=== PATIENT | male | born 1995 | race Asian ===

== ENCOUNTER 2019-05-31 15:45 | Emergency (ER) | payer BC ==
--- NOTE | 2019-05-31 17:30 | EDM.PDOC ---
<Bhumika Alaniz - Last Filed: 05/31/19 17:25> ED HPI GENERAL MEDICAL PROBLEM - General Chief Complaint: Abdominal Pain Stated Complaint: BLOOD IN STOOL Time Seen by Provider: 05/31/19 17:14 Source of Information: Reports: Patient History Limitations: Reports: No Limitations - History of Present Illness INITIAL COMMENTS - FREE TEXT/NARRATIVE: Patient is a pleasant 23-year-old male that presents to the ED today for complaints of blood in the stool and pain at rectum with bowel movements for the past four days. He reports that he gets more blood on the tissue paper when he wipes than he sees in the toilet bowl. For the first two days, he reports that the blood was a dark red color and for the past two days it has been a brighter red. He states his bowel movements are typically soft and he does not have to strain to evacuate stool. He reports he had a similar episode of blood in the stool in December of 2018, at which time he saw the school nurse and was told to increase his fluids and the issue resolved after five day. He denies having any abdominal pain, nausea, or diarrhea. Duration: Day(s): Treatments ADMITTING OFFICE ESCORT: Reports: Other (see below) Other Treatments ADMITTING OFFICE ESCORT: increased fluid intake - Related Data Allergies Allergy/AdvReac Type Severity Reaction Status Date / Time No Known Allergies Allergy Verified 05/31/19 16:01 Home Meds: Home Meds . [No Known Home Meds] 05/31/19 [History] Past Medical History HEENT History: Reports: Impaired Vision Gastrointestinal History: Reports: Other (See Below) Social & Family History - Tobacco Use Smoking Status *Q: Never Smoker Second Hand Smoke Exposure: No - Caffeine Use Caffeine Use: Reports: None - Recreational Drug Use Recreational Drug Use: No ED ROS GENERAL - Review of Systems Review Of Systems: See Below Constitutional: Reports: No Symptoms. Denies: Fever, Chills, Weakness, Decreased Appetite Respiratory: Reports: No Symptoms. Denies: Shortness of Breath, Wheezing, Cough Cardiovascular: Reports: No Symptoms. Denies: Chest Pain, Edema, Syncope GI/Abdominal: Reports: Bloody Stool, Hematochezia. Denies: Abdominal Pain, Constipation, Diarrhea, Decreased Appetite, Melena, Nausea, Vomiting Skin: Reports: No Symptoms. Denies: Rash, Erythema Neurological: Reports: No Symptoms. Denies: Dizziness, Syncope, Weakness Psychiatric: Reports: No Symptoms ED EXAM, GI/ABD - Physical Exam Exam: See Below Exam Limited By: No Limitations General Appearance: Alert, WD/WN, No Apparent Distress Respiratory/Chest: No Respiratory Distress, Lungs Clear, Normal Breath Sounds, Chest Non-Tender Cardiovascular: Normal Peripheral Pulses, Regular Rate, Rhythm, No Edema, No Murmur GI/Abdominal Exam: Normal Bowel Sounds, Soft, Non-Tender, No Organomegaly, No Distention, No Mass Back Exam: Normal Inspection, Full Range of Motion Extremities: Normal Inspection, Normal Range of Motion, Non-Tender, No Pedal Edema, Normal Capillary Refill Neurological: Alert, Oriented, Normal Cognition, No Motor/Sensory Deficits Psychiatric: Normal Affect, Normal Mood Skin Exam: Warm, Dry, Intact, No Rash Course - Vital Signs Last Recorded V/S: Last Vital Signs Temp 98.2 F 05/31/19 15:54 Pulse 81 05/31/19 15:54 Resp 18 05/31/19 15:54 BP 135/81 05/31/19 15:54 Pulse Ox 100 05/31/19 15:54 Departure - Departure Disposition: Home, Self-Care 01 Clinical Impression: Rectal hemorrhage - Discharge Information Referrals: PCP,None [Primary Care Provider] - Forms: ED Department Discharge Additional Instructions: High-fiber diet, drink plenty of water, stool softener such as Colace once or twice daily which is available OTC. Preparation H suppository which is also available OTC once every 8 hours until bleeding has completely stopped. Follow- up with [facility] if bleeding hasn't totally resolved within 5-7 days as expected or return to ED as needed. Sepsis Event Note - Evaluation Sepsis Screening Result: No Definite Risk - Focused Exam Date Exam was Performed: 05/31/19 Time Exam was Performed: 17:25 <Jose Guadalupe Chery - Last Filed: 06/02/19 11:22> Course - Re-Assessments/Exams Free Text/Narrative Re-Assessment/Exam: 06/02/19 11:20 Initial hx and exam was done by KIMBERLY Santillan student. I agree with her hx and exam as documented. I have also interviewed and evaluated patient. I did do a rectal exam and on my exam there was no blood, small amount of brown stool, trace heme positive, no mass or unusual tenderness or when the patient did white very small amount of blood. This is either a small internal hemorrhoid or small rectal fissure. No evidence for upper GI bleeding or colonic hemorrhage. Urge instructions as documented. Departure - Departure Time of Disposition: 18:21 Condition: Fair Sepsis Event Note - Focused Exam Date Exam was Performed: 06/02/19 Time Exam was Performed: 11:20
== END 2019-05-31 18:28 | disposition home or self-care (01) ==
LOC: JD.ED 15:45
DX: K62.5 Hemorrhage of anus and rectum (principal)
CPT/HCPCS: 99282; 99283

== ENCOUNTER 2020-10-21 21:32 | Emergency (ER) | payer BC ==
--- NOTE | 2020-10-21 23:10 | EDM.PDOC ---
<Jose Guadalupe Chery Esvin - Last Filed: 10/21/20 23:05> ED HPI GENERAL MEDICAL PROBLEM - General Chief Complaint: General Stated Complaint: WEAK TIRED ABDOMINAL PAIN Time Seen by Provider: 10/21/20 22:12 Source of Information: Reports: Patient, RN Notes Reviewed - History of Present Illness INITIAL COMMENTS - FREE TEXT/NARRATIVE: 24 yr old male comes in with multiple concerns. Mostly concerned about decreased appetite, low energy for the past 1 to 2 weeks. Has noticed some irritation end of his penis, better this evening and has had mild dysuria. Worried about possible STD or wondering what else might be going on. No recent cough, chest pain, dsypnea abd pain. No fever, chills, vomiting or diarrhea. Headache Pain Score (Numeric/FACES): 7 - Related Data Allergies Allergy/AdvReac Type Severity Reaction Status Date / Time No Known Allergies Allergy Verified 10/21/20 21:59 Home Meds: Home Meds . [No Known Home Meds] 05/31/19 [History] Past Medical History HEENT History: Reports: Impaired Vision Cardiovascular History: Reports: None Respiratory History: Reports: None Gastrointestinal History: Reports: Other (See Below) Genitourinary History: Reports: None Musculoskeletal History: Reports: None Neurological History: Reports: None Psychiatric History: Reports: None Endocrine/Metabolic History: Reports: None Hematologic History: Reports: None Immunologic History: Reports: None Oncologic (Cancer) History: Reports: None Dermatologic History: Reports: Other (See Below) Other Dermatologic History: cyst on tailbone - Infectious Disease History Infectious Disease History: Reports: None - Past Surgical History HEENT Surgical History: Reports: None Social & Family History - Family History Family Medical History: No Pertinent Family History - Tobacco Use Tobacco Use Status *Q: Never Tobacco User - Caffeine Use Caffeine Use: Reports: None - Recreational Drug Use Recreational Drug Use: No ED ROS GENERAL - Review of Systems Review Of Systems: See Below Constitutional: Denies: Fever, Chills HEENT: Reports: No Symptoms Respiratory: Denies: Shortness of Breath, Cough Cardiovascular: Denies: Chest Pain GI/Abdominal: Reports: Decreased Appetite. Denies: Abdominal Pain, Nausea Musculoskeletal: Reports: No Symptoms Skin: Reports: Rash (mild "inflamation" distal penis) Neurological: Reports: Dizziness (mild). Denies: Headache, Weakness ED EXAM, GENERAL - Physical Exam Exam: See Below General Appearance: Alert, No Apparent Distress Throat/Mouth: Normal Inspection Head: Atraumatic Neck: Supple Respiratory/Chest: No Respiratory Distress, Normal Breath Sounds Cardiovascular: Regular Rate, Rhythm GI/Abdominal: Soft, Non-Tender (Male) Exam: Other (no rash or other lesions visible at time of exam). No: Urethral Discharge Back Exam: No: CVA Tenderness (L), CVA Tenderness (R) Extremities: Normal Inspection Neurological: Alert, Oriented, No Motor/Sensory Deficits Skin Exam: Warm, Dry, Normal Color, No Rash Course - Re-Assessments/Exams Free Text/Narrative Re-Assessment/Exam: 10/21/20 23:09 UA neg, CBC normal. Chlamydia, gonorhea screen still pending. It is now after end of my shift. Will transfer care to Dr Cheney. Departure - Departure Disposition: Home, Self-Care 01 Clinical Impression: Weakness, Abdominal discomfort, Decreased appetite - Discharge Information Referrals: PCP,Not In Area [Primary Care Provider] - Forms: ED Department Discharge Additional Instructions: Return to the emergency room with any questions problems or concerning symptoms. Follow-up in the hospital clinic in 1 week for recheck. Their phone number is [phone] Sepsis Event Note (ED) - Evaluation Sepsis Screening Result: No Definite Risk <Ricardo Cheney - Last Filed: 10/22/20 01:24> ED EXAM, GENERAL - Physical Exam (Male) Exam: Other Course - Vital Signs Last Recorded V/S: Last Vital Signs Temp 36.2 C 10/21/20 22:01 Pulse 84 10/21/20 22:01 Resp 18 10/21/20 22:01 BP 137/79 10/21/20 22:01 Pulse Ox 100 10/21/20 22:01 - Orders/Labs/Meds Labs: Laboratory Tests 10/21/20 10/21/20 10/21/20 Range/Units 20:25 20:26 22:34 WBC 9.21 H (4.23-9.07) K/mm3 RBC 5.22 (4.63-6.08) M/mm3 Hgb 15.0 (13.7-17.5) gm/dl Hct 45.2 (40.1-51.0) % MCV 86.6 (79.0-92.2) fl MCH 28.7 (25.7-32.2) pg MCHC 33.2 (32.2-35.5) g/dl RDW Std Deviation 40.8 (35.1-43.9) fL Plt Count 302 (163-337) K/mm3 MPV 9.9 (9.4-12.3) fl Neut % (Auto) 47.9 (34.0-67.9) % Lymph % (Auto) 41.8 (21.8-53.1) % [place] % (Auto) 7.2 (5.3-12.2) % Eos % (Auto) 2.4 (0.8-7.0) Baso % (Auto) 0.7 (0.1-1.2) % Neut # (Auto) 4.42 (1.78-5.38) K/mm3 Lymph # (Auto) 3.85 H (1.32-3.57) K/mm3 [facility] # (Auto) 0.66 (0.30-0.82) K/mm3 Eos # (Auto) 0.22 (0.04-0.54) K/mm3 Baso # (Auto) 0.06 (0.01-0.08) K/mm3 Urine Color Yellow (Yellow) Urine Appearance Clear (Clear) Urine pH 6.0 (5.0-8.0) Ur Specific [place] > or = 1.030 (1.005-1.030) Urine Protein Negative (Negative) Urine Glucose (UA) Negative (Negative) Urine Ketones Negative (Negative) Urine Occult Blood Negative (Negative) Urine Nitrite Negative (Negative) Urine Bilirubin Negative (Negative) Urine Urobilinogen 0.2 (0.2-1.0) Ur Leukocyte Esterase Negative (Negative) C trachomatis DNA (PCR) Not detected N gonorrhoeae DNA (PCR) Not detected - Re-Assessments/Exams Free Text/Narrative Re-Assessment/Exam: 10/22/20 01:22 Patient is doing okay GC and chlamydia are negative the patient would like to go home we will discharge home at this time I strongly recommend he follow-up in the hospital clinic to establish and to work-up any future problems he might have. Departure - Departure Time of Disposition: 01:23 Sepsis Event Note (ED) - Focused Exam Vital Signs: Vital Signs Temp Pulse Resp BP Pulse Ox 10/21/20 22:01 36.2 C 84 18 137/79 100
[2020-10-22 00:25] LABS: C. TRACHOMATIS BY PCR NOT DETECTED; N. GONORRHOEAE BY PCR NOT DETECTED
== END 2020-10-22 01:30 | disposition home or self-care (01) ==
LOC: JD.ED 21:32
DX: R10.9 Unspecified abdominal pain (principal); R63.0 Anorexia; R53.1 Weakness; Z68.26 Body mass index [BMI] 26.0-26.9, adult
CPT/HCPCS: 36415; 81003; 85025; 87491; 87591; 99283; 99284